=== PATIENT | female | born 1970 | race Hispanic/Latino ===

== ENCOUNTER 2017-04-02 10:35 | Outpatient (CLI) | payer BC ==
--- NOTE | 2017-04-04 13:34 | Mammography Report ---
BILATERAL DIGITAL SCREENING MAMMOGRAM with CAD: 04/02/17 10:35:00 CLINICAL: Routine screening. COMPARISON:03/22/16 FINDINGS: The breasts are mostly fatty with a few bilateral retroareolar fibroglandular densities. A right asymmetry on the MLO view requires additional imaging. No architectural distortion or suspicious calcifications. The left breast is negative. IMPRESSION: Right asymmetry requiring additional imaging.. BI-RADS CATEGORY: 0--Needs Additional Imaging RECOMMENDATION: Recall for a right MLO magnification view and right breast ultrasound if needed. COMMENT: Patient follow-up letters are generated by our [employer] application.
== END 2017-04-02 10:36 | disposition home or self-care (01) ==
LOC: SPVWC 10:35
PROVIDERS: ATTEND Internal Medicine
DX: Z12.31 Encounter for screening mammogram for malignant neoplasm of breast (principal)
CPT/HCPCS: 77067; G0202

== ENCOUNTER 2017-07-18 14:46 | Outpatient (CLI) | payer BC ==
--- NOTE | 2017-07-18 15:21 | Mammography Report ---
RIGHT DIGITAL DIAGNOSTIC MAMMOGRAM : 07/18/17 14:46:00 CLINICAL: Recalled for asymmetry. COMPARISON:04/02/17 screening FINDINGS: A spot magnification MLO view was performed and demonstrates satisfactory effacement of asymmetry. A few scattered benign calcifications. IMPRESSION: Negative Mammogram. BI-RADS CATEGORY: 2 - - Benign RECOMMENDATION: Routine mammographic screening. ACR BI-RADS MAMMOGRAPHIC CODES: 0 = Needs additional imaging evaluation; 1 = Negative; 2 = Benign; 3 = Probably benign; 4 = Suspicious; 5 = Malignant; 6 = Known biopsy-proven malignancy COMMENT: 1. Dense breast tissue, i.e., adenosis, fibrocystic changes, etc., may obscure an underlying neoplasm. 2. Approximately 10% of cancers are not detected with mammography. 3. A negative mammography report should not delay biopsy if a clinically suspicious mass is present. COMMENT: Patient follow-up letters are generated via our [employer] application.
== END 2017-07-18 14:47 | disposition home or self-care (01) ==
LOC: SPVWC 14:46
PROVIDERS: ATTEND Internal Medicine
DX: R92.8 Other abnormal and inconclusive findings on diagnostic imaging of breast (principal)

== ENCOUNTER 2020-10-08 11:14 | Outpatient (CLI) | payer BC ==
--- NOTE | 2020-10-08 15:49 | Mammography Report ---
DIGITAL SCREENING MAMMOGRAM WITH CAD, 10/08/2020 CLINICAL INFORMATION / INDICATION: Routine screening TECHNIQUE: Digital bilateral 2D mammography was obtained in the craniocaudal and mediolateral obliqu e projections. This examination was interpreted with the benefit of Computer-Aided Detection analysis . COMPARISON: 04/02/2017 FINDINGS: Breast Density: The breasts are heterogeneously dense, which may obscure small masses. A new density is seen in the 12:00 position of the left breast, mid to posterior depth, measuring phil roximately 10 mm. In the retroareolar area of the right breast, anterior depth, mildly increasing loosely grouped micro calcifications are seen. IMPRESSION: 1. New density on the left 2. Mild increase in calcifications on the right Follow up recommendation: 1. Left spot compression views and ultrasound if needed 2. Right magnification views BI-RADS Category 0: Incomplete. Needs additional imaging evaluation and/or prior mammograms for ryan de la cruz. A "normal" or negative report should not discourage follow up or biopsy of a clinically significant f inding. A written summary of these findings will be mailed to the patient. The patient will be entered into a mammography reporting system which will generate a reminder letter for the patient's next appointmen t at the appropriate interval. The [employer] recommends yearly mammograms starting at age 40 and continuing as l yvonne as a woman is in good health. Breast MRI is recommended for women with an approximate 20-25% or greater lifetime risk of breast cancer, including women with a strong family history of breast or ova brett cancer or who have been treated for Hodgkin's disease. Signer Name: Lg Devi MD Signed: 10/08/2020 3:44 PM Workstation Name: [id number]
== END 2020-10-08 11:15 | disposition home or self-care (01) ==
LOC: SPVWC 11:14
PROVIDERS: ATTEND Internal Medicine
DX: Z12.31 Encounter for screening mammogram for malignant neoplasm of breast (principal); N64.89 Other specified disorders of breast
CPT/HCPCS: 77067

== ENCOUNTER 2021-05-13 08:50 | Outpatient (CLI) | payer BC ==
--- NOTE | 2021-05-13 10:01 | Mammography Report ---
DIGITAL DIAGNOSTIC MAMMOGRAM WITH CAD CONVENTIONAL, 05/13/2021 CLINICAL INFORMATION / INDICATION: Patient presents for six-month follow-up of probably benign calcif ications in the right breast and a probably benign density in the left breast. TECHNIQUE: Digital bilateral mammographic imaging was performed. Magnification views were obtained. This examination was interpreted with the benefit of Computer-aided Detection analysis. COMPARISON: Prior mammograms 10/08/2020 and 04/02/2017 FINDINGS: Breast Density: There are scattered areas of fibroglandular density. No dominant mass, suspicious calcifications or architectural distortion in either breast. There are stable scattered calcifications in the subareolar right breast which again demonstrate laye ring components on the lateral magnification view, most compatible with benign milk of calcium. The p reviously described density in the 12:00 position of the left breast is less conspicuous compared wit h the prior examination, most compatible with a benign etiology. IMPRESSION: 1. The previously described right breast calcifications remain unchanged compared with prior examinat ion and are most compatible with benign milk of calcium. The previously described density in the left breast is less conspicuous compared with the prior examination, compatible with a benign etiology. N o suspicious mammographic abnormality identified. Follow up recommendation: Routine yearly BI-RADS Category 2: Benign. A "normal" or negative report should not discourage follow up or biopsy of a clinically significant f inding. A written summary of these findings will be mailed to the patient. The patient will be entered into a mammography reporting system which will generate a reminder letter for the patient's next appointmen t at the appropriate interval. According to the [employer], yearly mammograms are recommended starting at age 40 and continuing as long as a woman is in good health. Breast MRI is recommended for women with an phil roximately 20-25% or greater lifetime risk of breast cancer, including women with a strong family his tory of breast or ovarian cancer and women who have been treated for Hodgkin's disease. Signer Name: Amanda Seo MD Signed: 05/13/2021 9:56 AM Workstation Name: [id number]
== END 2021-05-13 08:51 | disposition home or self-care (01) ==
LOC: SPVWC 08:50
PROVIDERS: ATTEND Internal Medicine
DX: R92.1 Mammographic calcification found on diagnostic imaging of breast (principal)
CPT/HCPCS: 77066